=== PATIENT | female | born 1970 | race Two or more races ===

== ENCOUNTER 2024-01-26 08:28 | Outpatient (CLI) | payer OTHER | END 2024-01-26 08:49 | disposition home or self-care (01) | LOC: MRI 08:28 | PROVIDERS: ATTEND Family Medicine | DX: Z12.31 Encounter for screening mammogram for malignant neoplasm of breast (principal); K76.0 Fatty (change of) liver, not elsewhere classified; C73 Malignant neoplasm of thyroid gland; I10 Essential (primary) hypertension; E11.9 Type 2 diabetes mellitus without complications; R80.9 Proteinuria, unspecified; N18.2 Chronic kidney disease, stage 2 (mild); J20.8 Acute bronchitis due to other specified organisms; R05.9 Cough, unspecified; R10.9 Unspecified abdominal pain; R10.11 Right upper quadrant pain; R10.2 Pelvic and perineal pain | CPT/HCPCS: 70551 ==

== ENCOUNTER 2024-01-31 10:11 | Outpatient (CLI) | payer OTHER | END 2024-01-31 10:13 | disposition home or self-care (01) | LOC: NUCLEAR 10:11 | PROVIDERS: ATTEND Family Medicine | DX: M81.0 Age-related osteoporosis without current pathological fracture (principal) ==